=== PATIENT | male | born 1970 | race Caucasian/White ===

== ENCOUNTER 2020-01-20 12:16 | Outpatient (CLI) | payer BC, SELFPAY ==
[2020-01-24 17:37] LABS: PSA, Free 1.32 ng/mL; PSA, Total 7.7 ng/mL (<=4.0); Percent Free Prostate Spec Ag 17 % (>25)
== END 2020-01-20 12:17 | disposition home or self-care (01) ==
PROVIDERS: PCP Nurse Practitioner Family; Visit Provider Urology
DX: Z80.42 Family history of malignant neoplasm of prostate (principal)
CPT/HCPCS: 36415; 84153; 84154

== ENCOUNTER 2022-07-31 17:31 | Observation (INO) | payer BC, SELFPAY ==
[2022-07-31] VITALS (9 sets, daily range): BP systolic 89–122; BP diastolic 62–85; PULSE 70–90; RESP 13–19; TEMP 36.5–36.7; O2SAT 94–99; BMI 36.5; BMI 36.3
--- NOTE | 2022-07-31 17:37 | ECG_ITS ---
Measurements Intervals [place] Rate: 77 P: 52 CT: 200 QRS: -20 QRSD: 124 T: 157 QT: 365 QTc: 415 Interpretive Statements SINUS RHYTHM BORDERLINE AV CONDUCTION DELAY LEFT BUNDLE BRANCH BLOCK ABNORMAL ECG COMPARED TO ECG 01/28/2019 05:25:46 NO SIGNIFICANT CHANGES Electronically Signed On 07-31-2022 20:12:50 WEB UI DEVELOPER by Jay Denny D.O.
[2022-07-31 17:58] LABS: Basophils Absolute Auto 0.1 K/mm3 (0.0-0.1); Basophils Percent Auto 0.6 % (0.2-1.2); Eosinophils Absolute Auto 0.4 K/mm3 (0-0.3); Eosinophils Percent Auto 3.6 % (0-4.4); Hematocrit 38.2 % (42.0-52.0); Hemoglobin 13.3 g/dL (14.0-18.0); Immature Granulocyte Absolute 0.02 K/mm3 (0.00-0.031); Immature Granulocyte Percent A 0.2 % (0-0.5); Lymphocytes Absolute Auto 2.98 K/mm3 (0.9-3.2); Lymphocytes Percent Auto 26.1 % (18.3-44.2); Mean Corpuscular HGB Conc 34.8 g/dl (32-36); Mean Corpuscular Hemoglobin 30.9 pg (26-34); Mean Corpuscular Volume 88.8 fl (80-100); Mean Platelet Volume 8.9 fl (7.4-10.4); Monocytes Absolute Auto 0.8 K/mm3 (0.1-0.6); Monocytes Percent Auto 7.4 % (2.6-8.5); Neutrophils Absolute Auto 7.1 K/mm3 (1.3-6.7); Neutrophils Percent Auto 62.1 % (45.5-73.1); Platelet Count Result 290 k/mm3 (150-375); Red Cell Distribution Width 11.7 % (11.5-14.5); White Blood Count 11.4 K/mm3 (4.5-10.0)
--- NOTE | 2022-07-31 18:03 | ED.DIZZY ---
HPI - Dizziness General Chief Complaint: Syncope Stated Complaint: syncopal episode Time Seen by Provider: 07/31/22 17:54 History of Present Illness HPI Narrative: 52-year-old male history of hypertension, congestive heart failure presents to the emergency room for evaluation of a syncopal episode. Patient sees Dr. Wharton at [facility]. Patient has been complaining of dizziness for several weeks, had an MRI that showed a posterior circulation stroke 3 weeks ago. Patient states that he was laying on the couch watching a movie, when he stood up suddenly to go answer the door. Patient states that he did not make it to the right door before he had a syncopal episode. Denies any injuries associated with syncopal episode. Patient states that he believes he lost consciousness for 3 to 4 seconds. No changes to his medications. Denies any chest pain palpitations shortness of breath difficulty breathing. Patient states that he did experience a little dizziness following the episode but that has since resolved. Presently patient is alert and orient x4 and does not have any complaints. Related Data Home Medications Medication Instructions Recorded Confirmed atorvastatin 20 mg tablet mg 07/31/22 carvedilol 25 mg tablet mg 07/31/22 furosemide 40 mg tablet mg 07/31/22 glyburide 5 mg tablet mg 07/31/22 metformin 1,000 mg tablet mg 07/31/22 spironolactone 25 mg tablet mg 07/31/22 valsartan 320 mg tablet mg 07/31/22 Allergies Allergy/AdvReac Type Severity Reaction Status Date / Time No Known Allergies Allergy Unverified 01/25/19 01:39 Review of Systems Review of Systems: CONSTITUTIONAL: Denies fever, chills, or sweats. EYES: Denies visual changes, redness, or discharge. ENT: Denies rhinorrhea, congestion, sore throat, or otalgia. CARDIOVASCULAR: Denies chest pain, palpitations, or edema. RESPIRATORY: Denies cough or dyspnea. GASTROINTESTINAL: Denies abdominal pain, nausea, vomiting, or diarrhea. GENITOURINARY: Denies dysuria or hematuria. SKIN: Denies rash or itching. MUSCULOSKELETAL: Denies back pain, joint pain, or myalgia. NEUROLOGIC: Denies headache, numbness, dizziness, or weakness. PSYCHIATRIC: Denies anxiety or depression. Exam Narrative: GENERAL: Well-appearing, well-nourished, no physical limitations, and in no acute distress. HEAD: Normocephalic, atraumatic. EYES: Conjunctivae normal, PERRLA and EOMI. NECK: Supple. No carotid bruits or JVD CHEST: Clear to auscultation. No respiratory distress. No wheezes rales or rhonchi. HEART: Regular rate and rhythm. No murmur heard. Normal peripheral pulses. ABDOMEN: Soft, nontender, nondistended, normal active bowel sounds. EXTREMITIES: Normal range of motion. No edema. No clubbing or cyanosis SKIN: Warm, dry, no rash. No noted wounds NEURO: No focal deficits. Alert and oriented x3. MAEW. CN's II-XI intact bilaterally, normal gait PSYCH: Cooperative. Normal mood and affect. Course Vital Signs Vital signs: Vital Signs Temperature 36.5 C 07/31/22 17:37 Pulse Rate 78 07/31/22 17:37 Respiratory Rate 18 07/31/22 17:37 Blood Pressure 117/83 07/31/22 17:37 Pulse Oximetry 99 07/31/22 17:37 Temperature 36.5 C 07/31/22 17:37 Pulse Rate 90 07/31/22 19:57 Respiratory Rate 18 07/31/22 17:37 Blood Pressure 89/70 L 07/31/22 19:57 Pulse Oximetry 99 07/31/22 17:37 MDM - Dizziness Lab Data Result diagrams: 07/31/22 17:51 07/31/22 17:51 Labs: Lab Results 07/31/22 07/31/22 07/31/22 Range/Units 17:51 17:51 17:51 WBC 11.4 H (4.5-10.0) K/mm3 RBC 4.30 L (4.6-6.20) M/mm3 Hgb 13.3 L (14.0-18.0) g/dL Hct 38.2 L (42.0-52.0) % MCV 88.8 (80-100) fl MCH 30.9 (26-34) pg MCHC 34.8 (32-36) g/dl RDW 11.7 (11.5-14.5) % Plt Count 290 (150-375) k/mm3 MPV 8.9 (7.4-10.4) fl Immature Gran % (Auto) 0.2 (0-0.5) % Neut % (Auto) 62.1 (45.5-73.1) %
[2022-07-31 18:12] LABS: Alanine Aminotransferase 34 U/L (6-50); Alkaline Phosphatase 46 U/L (38-126); Anion Gap 14 mmol/L (8-16); Aspartate Amino Transferase 29 U/L (17-59); Bilirubin,Total 0.4 mg/dL (0.2-1.3); Blood Urea Nitrogen 15 mg/dL (9-20); Calcium 9.8 mg/dL (8.4-10.2); Carbon Dioxide 24 mmol/L (22-30); Chloride 98 mmol/L (98-107); Estimated Glomerular Filt Rate > 60; Glucose 150 mg/dL (65-110); Potassium 4.4 mmol/L (3.4-5.0); Sodium 136 mmol/L (137-145)
[2022-07-31 18:51] LABS: NT Pro B Type Natriuretic Pept 84 pg/mL (5-100)
[2022-07-31 18:56] LABS: Troponin I < 0.012 ng/mL (0.000-0.034)
--- NOTE | 2022-07-31 20:15 | PM.IMHP ---
H&P: HPI History of Present Illness Date/Time: 07/31/22 20:15 Chief Complaint: Passed out Narrative: Short-stay summary 52-year-old male with past medical history of recent posterior circulation CVA, essential hypertension, coronary artery disease, hyperlipidemia and diabetes who presented to the ER after having syncopal event. The patient reports that his neighbors were making a lot of noise outside so he jumped off the couch and went to the door to look outside. When E he a got to the front door he felt extremely lightheaded and passed out. He does not think he was unconscious for very long. He reports that he frequently Becomes lightheaded if he gets up too fast. He also admits to drinking a fairly significant monitor caffeine with 2-3 caffeinated sodas a day. He admits that he does not drink much water despite taking both Lasix and spironolactone for diuretics. He reports he does not have any dyspnea on exertion orthopnea, palpitations, chest pain or shortness of breath. He has not been having any cough or congestion. In the ER orthostatics were performed upon my request and the patient was found to have a significant drop in his systolic blood pressure with position changes and elevated heart rate as well. He reports that he feels like he should not drink much water because why drink water and then take a diuretic to then urinate. He reports that last week his Entresto was stopped as he could not afford it and he was switched to valsartan. He reports his blood pressures at home have been in the 100s/60s at baseline. EKG performed in the ER demonstrated no acute process. Patient has not had any events on manager monitoring. He reports chronic numbness of his feet due to diabetic neuropathy. He has glaucoma as well but denies any recent vision changes. He denies any head pain or localizing pain. He does have some chronic low back discomfort. He does have obstructive sleep apnea but is not always compliant with wearing his CPAP. He reports that his filters are old and he needs to replacement parts. He denies any bowel or bladder incontinence. Review of Systems Review of Systems: 12 systems were reviewed with pertinent positives and negatives per HPI. Except as documented in the HPI, all other systems were reviewed and are negative. [facility] Past Medical History Medical History (Updated 08/01/22 @ 00:36 by Gunjan Pino DO) Cerebrovascular accident involving posterior circulation Evidence of an old posterior circulation CVA was noted on MRI July 2022 CHF (congestive heart failure) Essential hypertension Glaucoma Hyperlipidemia Obstructive sleep apnea on CPAP Type 2 diabetes mellitus Surgical History Surgical History (Updated 08/01/22 @ 00:30 by Gunjan Pino DO) History of cardiac catheterization (~2019) No need for stents Family History Family History (Updated 08/01/22 @ 00:33 by Gunjan Pino DO) Mother , Age 60 Type 1 diabetes mellitus Liver failure Father , Age 92 Old age Social History Social History (Updated 08/01/22 @ 00:34 by Gunjan Pino DO) Social History: He lives at home with his girlfriend. He is currently laid off he worked for [employer] until June 2022. He rarely drinks alcohol and only in small amounts. Has smoked half a pack of cigarettes per day since the age of 21 but recently switched to vaping. He denies any illicit substance use. Smoking packs per day: 0.5 Smoking cigarettes per day: 10.0 Years smoked: 30 Smoking pack-years: 15.00 Smoking status: Former smoker Tobacco type: e-cigarettes/vaping Smoking end date: 07/17/22 Alcohol intake: current Drinks per week: 0 Substance use type: does not use Lack of Transportation: No Lack of Food: Never True Current Housing: I Have Housing Concerned About Future Housing: No Difficulty Paying Gas/Electric Bills: No Difficulty Paying for Meds: No Currently Un
[2022-07-31] MEDS: SODIUM CHLORIDE 0.9% IV 1,000 ML 999 ML IV CONT (20:43)
[2022-07-31 21:30] LABS: Influenza A QL RT-PCR Negative (Negative); Influenza B QL RT-PCR Negative (Negative); SARS-CoV-2 RNA PCR Negative
--- NOTE | 2022-07-31 21:50 | ADMGEN ---
This patient, Randall Castillo, was admitted to Medical Room 256-. Patient/family oriented to hospital policies and general routines including ID bracelet, bed and alarms, visiting hours, pain management, procedures, bathroom and other care routines, personal items, smoking policy, room service/diet, and visiting hours. Information on how to activate the Rapid Response Team has been discussed. Patient/Family are encouraged to report perceived risks to care and to ask questions if they do not understand what they are told or what they should do.
[2022-07-31 22:33] LABS: Glucose Point of Care 100 mg/dl (65-105)
[2022-07-31 22:52] LABS: Troponin I < 0.012 ng/mL (0.000-0.034)
[2022-07-31] MEDS: SODIUM CHLORIDE 0.9% IV 1,000 ML 125 ML IV CONT (22:55)
[2022-08-01] VITALS: PULSE 66
[2022-08-01 04:00] VITALS: PULSE 63
[2022-08-01 05:59] VITALS: BP 105/68; PULSE 63; RESP 14; TEMP 36.5; O2SAT 98
[2022-08-01 06:02] VITALS: BP 105/68; PULSE 63
[2022-08-01 06:05] VITALS: BP 103/64; PULSE 72
[2022-08-01 06:09] VITALS: BP 95/66; PULSE 77
--- NOTE | 2022-08-01 06:55 | PM.DS ---
DS: Admitting Diagnosis Discharge Date 08/01/2022 Admitting Diagnosis Syncope DS: Discharge Diagnosis Discharge Diagnosis (1) Syncope due to orthostatic hypotension: Code(s): I95.1 - Orthostatic hypotension Status: Acute Assessment and Plan: The patient's symptoms resolved after 1 L fluid bolus and maintenance fluids at 125 mL an hour overnight. Patient was given instructions to decrease caffeine intake and 2 increase clear liquids to 1.5-2 L a day. He was also instructed to wear support hose whenever possible while up and moving. He was given instructions on position changes and coping mechanisms for orthostatic symptoms. Some of the patient's symptoms could be due to a degree of autonomic dysfunction with his diabetes. The patient has close follow-up with his insurance business analyst story scheduled for next Sunday (6 days). Patient's Lasix has been decreased by half until he has follow-up with his insurance business analyst. Plan Please see assessment DS: Summary Hospital Course Hospital Course: Patient presented for syncope due to orthostatic hypotension with fast position changes. Symptoms resolved after adequate IV fluid hydration. No events on telemetry overnight. Medications have been adjusted. Patient has been discharged home. Status at Discharge Cognitive/behavioral status at discharge: Stable Functional status at discharge: independent ambulation Overall status at discharge: patient is back to baseline Time Spent with Patient Time attestation: Total time spent providing and/or coordinating discharge services: Time spent: Less than 30 minutes Specific discharge activities: Careful position changes, wear support hose, please see discharge instructions. Patient has been encouraged to use his CPAP machine as directed. Exam Narrative: Weight 111.8 kg BMI 36.4 Const: Other: No acute distress, obese HENMT: Other: Crowded posterior oropharynx, mucous membranes are tacky Eyes: Other: Equal and reactive, no scleral icterus Resp: Other: No increased work of breathing Cardio: Other: Regular rate, regular rhythm, telemetry review Neuro: Other: Right facial droop persists, no other localizing neurologic deficits noted Extrem: Other: No cyanosis, no edema Psych: Other: Appropriate mood and affect DS: Data Data Completed and Pending Labs on day of discharge: Labs from last 24 hours 07/31/22 07/31/22 07/31/22 22:32 22:24 20:27 WBC RBC Hgb Hct MCV MCH MCHC RDW Plt Count MPV Immature Gran % (Auto) Neut % (Auto) Lymph % (Auto) [place] % (Auto) Eos % (Auto) Baso % (Auto) Lymph # (Auto) [place] # (Auto) Eos # (Auto) Baso # (Auto) Abs Immat Gran (auto) Absolute Neuts (auto) Absolute Nucleated RBC Nucleated RBC % Sodium Potassium Chloride Carbon Dioxide Anion Gap BUN Creatinine Estim Creat Clear Calc Estimated GFR Glucose POC Capillary Glucose 100 Calcium Total Bilirubin AST ALT Alkaline Phosphatase Troponin I < 0.012 NT-Pro-B Natriuret Pep Total Protein Albumin Influenza A (RT-PCR) Negative Influenza B (RT-PCR) Negative SARS-CoV-2 RNA (RT-PCR) Negative 07/31/22 07/31/22 07/31/22 17:51 17:51 17:51 WBC RBC Hgb Hct MCV MCH MCHC RDW Plt Count MPV Immature Gran % (Auto) Neut % (Auto) Lymph % (Auto) [place] % (Auto) Eos % (Auto) Baso % (Auto) Lymph # (Auto) [place] # (Auto) Eos # (Auto) Baso # (Auto) Abs Immat Gran (auto) Absolute Neuts (auto) Absolute Nucleated RBC Nucleated RBC % Sodium 136 L Potassium 4.4 Chloride 98 Carbon Dioxide 24 Anion Gap 14 BUN 15 Creatinine 0.80 Estim Creat Clear Calc Not Reportable Estimated GFR > 60 Glucose 150 H POC Capillary Glucose Calcium 9.8 Total Bilirubin 0.4 AST 29 A
== END 2022-08-01 08:20 | disposition home or self-care (01) ==
LOC: ANHED 19:55 → ANH2MED 21:10
PROVIDERS: Emergency Medicine; Admitting Provider Internal Medicine; Emergency Provider Nurse Practitioner Family; PCP Nurse Practitioner Family; Visit Provider Internal Medicine
DX: I95.1 Orthostatic hypotension (principal); I11.0 Hypertensive heart disease with heart failure; I44.7 Left bundle-branch block, unspecified; R94.31 Abnormal electrocardiogram [ECG] [EKG]; Z86.73 Personal history of transient ischemic attack (TIA), and cerebral infarction without residual deficits; I25.10 Atherosclerotic heart disease of native coronary artery without angina pectoris; E11.42 Type 2 diabetes mellitus with diabetic polyneuropathy; H40.9 Unspecified glaucoma; E78.5 Hyperlipidemia, unspecified; Z20.822 Contact with and (suspected) exposure to COVID-19; G47.33 Obstructive sleep apnea (adult) (pediatric); Z99.89 Dependence on other enabling machines and devices; Z83.3 Family history of diabetes mellitus; F17.290 Nicotine dependence, other tobacco product, uncomplicated; Z79.84 Long term (current) use of oral hypoglycemic drugs; Z79.899 Other long term (current) drug therapy
CPT/HCPCS: 36415; 80053; 82948; 83880; 84484; 85025; 87636; 93005; 96360; 96361; 99285; G0378; J7030

== ENCOUNTER 2025-07-09 13:45 | Outpatient (RCR) | payer OTHER, SELFPAY ==
[2025-03-31 11:51] VITALS: PULSE 109
== END 2025-07-09 14:18 | disposition home or self-care (01) ==
LOC: ANHCPREHAB 13:45
DX: Z95.2 Presence of prosthetic heart valve (principal)
CPT/HCPCS: 93798